=== PATIENT | female | born 1940 | race Caucasian/White ===

== ENCOUNTER 2017-07-30 21:54 | Inpatient (IN) | payer MEDICARE, OTHER ==
[~2017-07-30] VITALS: Ht 165.1 cm; Wt 57.6 kg
[2017-07-31] MEDS ORDERED: MAGNESIUM HYDROXIDE 30 ML UDC PO PRN (02:00)
[2017-07-31] MEDS ORDERED: MAG HYDROX/AL HYDROX/SIMETH 30 ML UDC PO PRN (02:00)
[2017-07-31] MEDS ORDERED: ZOLPIDEM TARTRATE 5 MG TABLET PO PRN (02:00)
[2017-07-31] MEDS ORDERED: ACETAMINOPHEN 325 MG TABLET PO PRN (02:00)
[2017-07-31] MEDS ORDERED: LORAZEPAM 0.5 MG TABLET PO PRN (02:00)
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
[2017-07-31] MEDS ORDERED: LATA2.5D2 EACHEYE (03:01)
[2017-07-31] MEDS ORDERED: ASPI-605 PO (03:01)
[2017-07-31] MEDS ORDERED: EPLE25TA10 PO (03:01)
[2017-07-31] MEDS ORDERED: LEVO112T2 PO (03:01)
[2017-07-31] MEDS ORDERED: FURO20TA4 PO (03:01)
[2017-07-31] MEDS ORDERED: CLOP75TA15 PO (03:01)
[2017-07-31] MEDS ORDERED: ESCI5TAB PO (03:01)
[2017-07-31] MEDS ORDERED: METO25TA6 PO (03:01)
[2017-07-31] MEDS ORDERED: LEVO750T46 PO (03:01)
[2017-07-31] MEDS ORDERED: QUET25TA PO (03:01)
[2017-07-31] MEDS ORDERED: ATOR20TA PO (03:01)
[2017-07-31] MEDS ORDERED: INSU100V7 SQ (03:01)
[2017-07-31] MEDS ORDERED: DEXTROSE 50%-WATER 50 ML DISP.SYRIN IV PRN ×2 (03:30→14:00)
[2017-07-31] MEDS ORDERED: *INSULIN REGULAR(HUMULIN R)HUM 100 UNIT/ML VIAL SQ PRN (03:30)
--- NOTE | 2017-07-31 04:19 | NUR ---
INITIAL ACCUCHECK WAS 217, 4 UNITS REG. INSULIN SC ADMINISTERED. OFFERED SNACKS.
--- NOTE | 2017-07-31 04:22 | NUR ---
PAGED AND SPOKE TO DR. MURPHY, RE: MED RECON AND INSULIN SLIDING SCALE.D SAID HE WILL JUST ORDER ACCUCHECK FOR NOW.
--- NOTE | 2017-07-31 07:03 | NUR ---
PATIENT REQUESTED PHOTO TAKEN IN THE MORNING.
--- NOTE | 2017-07-31 07:07 | NUR ---
PATIENT'S SON, SANTY VERGARA WAS CALLED, , NO ANSWER. VOICE MESSAGE LEFT.
[2017-07-31 08:00] VITALS: BP 147/77
[2017-07-31] MEDS: BLOOD SUGAR DIAGNOSTIC 1 EACH STRIP VI SCH ×2 (08:05→12:05)
[2017-07-31] MEDS: INSULIN REGULAR, HUMAN 100 UNIT/ML 3 ML VIAL SQ PRN ×3 (09:06→23:00)
--- NOTE | 2017-07-31 09:13 | NUR ---
GPS/RN-NOTES PATIENT BLOOD SUGAR WAS 167MG/DL, 3UNITS OF R INSULIN GIVEN PRN ORDER.
[2017-07-31] MEDS: ESCITALOPRAM OXALATE (10 MG) 10 MG TABLET PO SCH (11:32)
[2017-07-31] MEDS: QUETIAPINE FUMARATE 25 MG TABLET PO SCH ×2 (11:32→16:38)
--- NOTE | 2017-07-31 12:49 | NUR ---
GPS/RN-NOTES PATIENT BLOOD SUGAR WAS 262 MG/DL, 6 UNITS OF R INSULIN GIVEN PRN ORDER.
[2017-07-31] MEDS ORDERED: FUROSEMIDE 20 MG TABLET PO PRN (14:00)
[2017-07-31 15:11] LABS: CALCIUM, SERUM 8.9 mg/dL (8.5-10.1); CARBON DIOXIDE 29 mmol/L (21-32); CHLORIDE 103 mmol/L (98-107); CREATININE 1.2 mg/dL (0.6-1.3); GLUCOSE 328 mg/dL (74-106); POTASSIUM 4.4 mmol/L (3.5-5.1); SODIUM SERUM 138 mmol/L (136-145); UREA NITROGEN, BLOOD 21 mg/dL (7-18)
[2017-07-31 16:12] VITALS: BP 130/70
[2017-07-31] MEDS: METOPROLOL TARTRATE 25 MG TABLET PO SCH (16:39)
--- NOTE | 2017-07-31 16:42 | NUR ---
Initial Discharge Plan: Pts address on face sheet is [address] [place] [address]; . Pt reports it being her family residence. Pt however reports living in an Assisted Living (name unclear). Pt reports that her eldest son, Macho has conservatorship of her. SW will follow up with pts son, Macho to ensure pt is safely and properly discharged.
[2017-07-31] MEDS: BLOOD SUGAR DIAGNOSTIC 1 EACH STRIP IN SCH ×2 (17:26→22:55)
--- NOTE | 2017-07-31 18:08 | NUR ---
GPS/RN-NOTES WALDO DUNN SEEN THE PATIENT WITH VERBAL ORDER TO D/C LASIX 20MG P.O PRN. NOTED AND CARRIED OUT.
[2017-07-31] MEDS: LATANOPROST EYE DROP 0.005% 2.5 ML BOTTLE EACHEYE SCH (18:16)
[2017-07-31 20:00] VITALS: BP 143/90
[2017-07-31] MEDS ORDERED: CIPROFLOXACIN HCL 250 MG TABLET PO SCH (21:00)
[2017-07-31] MEDS ORDERED: CIPROFLOXACIN HCL 500 MG TABLET ONE (21:51)
[2017-07-31] MEDS ORDERED: INSULIN GLARGINE, 100 UNIT/ML CARTRIDGE SQ SCH (22:00)
[2017-07-31] MEDS: ATORVASTATIN 10 MG TABLET PO SCH (22:57)
[2017-08-01 08:00] VITALS: BP 127/59
[2017-08-01] MEDS: BLOOD SUGAR DIAGNOSTIC 1 EACH STRIP IN SCH ×4 (08:37→22:16)
[2017-08-01] MEDS: CLOPIDOGREL BISULFATE 75 MG TABLET PO SCH (08:41)
[2017-08-01] MEDS: ESCITALOPRAM OXALATE (10 MG) 10 MG TABLET PO SCH (08:41)
[2017-08-01] MEDS: QUETIAPINE FUMARATE 25 MG TABLET PO SCH ×2 (08:41→17:37)
[2017-08-01] MEDS: LEVOTHYROXINE SODIUM 112 MCG TABLET PO SCH (08:41)
[2017-08-01] MEDS: ASPIRIN EC 81 MG TABLET.DR PO SCH (08:41)
[2017-08-01] MEDS: METOPROLOL TARTRATE 25 MG TABLET PO SCH ×2 (08:42→17:38)
[2017-08-01] MEDS: HYDROCHLOROTHIAZIDE 25 MG TABLET PO SCH (08:42)
[2017-08-01] MEDS: INSULIN LISPRO/ASPART 100 UNIT/ML CARTRIDGE SQ SCH ×2 (09:44→17:52)
[2017-08-01] MEDS: INSULIN REGULAR, HUMAN 100 UNIT/ML 3 ML VIAL SQ PRN ×2 (12:30→22:19)
[2017-08-01 16:00] VITALS: BP_SYST 129; BP_SYST 135; BP_DIAS 65; BP_DIAS 87
[2017-08-01] MEDS: LATANOPROST EYE DROP 0.005% 2.5 ML BOTTLE EACHEYE SCH (17:38)
[2017-08-01] MEDS: CIPROFLOXACIN HCL 500 MG TABLET PO SCH (21:13)
[2017-08-01] MEDS: ATORVASTATIN 10 MG TABLET PO SCH (21:52)
[2017-08-01] MEDS: INSULIN GLARGINE, 100 UNIT/ML CARTRIDGE SQ SCH (22:17)
[2017-08-02] MEDS: BLOOD SUGAR DIAGNOSTIC 1 EACH STRIP IN SCH ×4 (07:05→21:30)
[2017-08-02] MEDS: INSULIN REGULAR, HUMAN 100 UNIT/ML 3 ML VIAL SQ PRN ×4 (07:08→21:34)
--- NOTE | 2017-08-02 07:08 | NUR ---
[id number]: BLOOD SUGAR IS 551 MG/DL AND NIGHTS SHIFT NURSE LASHELL SPOKE TO ZONIA DUNN TO ADMINISTER 10 UNITS OF REGULAR INSULIN AND HUMALOG 4 UNITS. WILL CONTINUE TO MONITOR FOR SIGNS AND SYMPTOMS OF ELEVATED BLOOD SUGAR.
[2017-08-02] MEDS: INSULIN LISPRO/ASPART 100 UNIT/ML CARTRIDGE SQ SCH ×2 (07:10→17:50)
[2017-08-02 07:19] LABS: BASOPHILS % (AUTO) 0.3 % (0.0-2.0); EOSINOPHILS # (AUTO) 0.1 /CMM (0.0-0.7); EOSINOPHILS % (AUTO) 1.1 % (0.0-6.0); HEMATOCRIT 34 % (33-45); HEMOGLOBIN 11.2 g/dL (11.5-14.8); LYMPHOCYTES # (AUTO) 1.2 /CMM (0.8-4.8); LYMPHOCYTES % (AUTO) 16.4 % (20.0-44.0); MEAN CORPUSCULAR HEMOGLOBIN 28 PG (26.0-33.0); MEAN CORPUSCULAR HGB CONC 34 g/dl (31.0-36.0); MEAN CORPUSCULAR VOLUME 85 fL (82-100); MONOCYTES # (AUTO) 0.4 /CMM (0.1-1.30); MONOCYTES % (AUTO) 5.6 % (2.0-12.0); NEUTROPHILS # (AUTO) 5.4 /CMM (1.8-8.9); NEUTROPHILS % (AUTO) 76.6 % (43.0-81.0); PLATELET COUNT (AUTO) 215 /CMM (150-450); RDW COEFFICIENT OF VARIATION 14.5 (11.5-15.0); RED BLOOD CELL COUNT(AUTO) 3.95 MIL/uL (4.0-5.2); WHITE BLOOD COUNT (AUTO) 7.1 K/uL (4.3-11.0)
[2017-08-02 07:29] LABS: CHOLESTEROL 207 mg/dL (<200); HDL CHOLESTEROL 69 mg/dL (40-60); LDL 119 mg/dL (0-99); TRIGLYCERIDES 46 mg/dL (30-150)
[2017-08-02 07:37] LABS: ALANINE AMINOTRANSFERASE 16 U/L (12-78); ALBUMIN 3.1 g/dL (3.4-5.0); ALKALINE PHOSPHATASE 96 U/L (46-116); ASPARTATE AMINOTRANSFERASE 17 U/L (15-37); BILIRUBIN,TOTAL 0.4 mg/dL (0.2-1.0); CALCIUM, SERUM 8.8 mg/dL (8.5-10.1); CARBON DIOXIDE 24 mmol/L (21-32); CHLORIDE 102 mmol/L (98-107); CREATININE 1.3 mg/dL (0.6-1.3); POTASSIUM 5.1 mmol/L (3.5-5.1); SODIUM SERUM 135 mmol/L (136-145); TOTAL PROTEIN, SERUM 6.8 g/dL (6.4-8.2); UREA NITROGEN, BLOOD 32 mg/dL (7-18)
[2017-08-02 07:39] LABS: GLUCOSE 551 mg/dL (74-106)
[2017-08-02 07:57] LABS: APPEARANCE,URINE CLEAR (CLEAR); BILIRUBIN,URINE NEGATIVE (NEGATIVE); BLOOD, URINE NEGATIVE Ery/uL (NEGATIVE); COLOR,URINE YELLOW (YELLOW); KETONES,URINE NEGATIVE (NEGATIVE); LEUKOCYTE ESTERASE ,URINE NEGATIVE (NEGATIVE); NITRITE, URINE NEGATIVE (NEGATIVE); PH,URINE 7.5 (5.0-8.0); PROTEIN,URINE NEGATIVE (NEGATIVE); UGLUCOSE NEGATIVE (NEGATIVE); UROBILINOGEN,URINE 0.2 EU/dL (0.2)
[2017-08-02 08:07] VITALS: BP 129/65
[2017-08-02] MEDS: LEVOTHYROXINE SODIUM 112 MCG TABLET PO SCH (08:47)
[2017-08-02] MEDS: ESCITALOPRAM OXALATE (10 MG) 10 MG TABLET PO SCH (08:47)
[2017-08-02] MEDS: HYDROCHLOROTHIAZIDE 25 MG TABLET PO SCH (08:48)
[2017-08-02] MEDS: QUETIAPINE FUMARATE 25 MG TABLET PO SCH ×3 (08:48→17:43)
[2017-08-02] MEDS: CLOPIDOGREL BISULFATE 75 MG TABLET PO SCH (08:48)
[2017-08-02] MEDS: ASPIRIN EC 81 MG TABLET.DR PO SCH (08:48)
[2017-08-02] MEDS: METOPROLOL TARTRATE 25 MG TABLET PO SCH ×2 (08:49→17:44)
[2017-08-02] MEDS: CIPROFLOXACIN HCL 500 MG TABLET PO SCH ×2 (08:51→21:11)
--- NOTE | 2017-08-02 08:59 | NUR ---
[id number]: BLOOD SUGAR IS 439 MG/DL. NOTIFIED ZONIA DUNN. NO NEW ORDERS GIVEN AT THIS TIME
--- NOTE | 2017-08-02 12:21 | NUR ---
[id number]: BLOOD SUGAR IS 187 MG/DL AND GAVE 3 UNITS OF REGULAR INSULIN
[2017-08-02 16:00] VITALS: BP 116/53
--- NOTE | 2017-08-02 17:49 | NUR ---
[id number]: BLOOD SUGAR IS 134 MG/DL AND GAVE 2 UNITS OF REGULAR INSULIN
[2017-08-02] MEDS: LATANOPROST EYE DROP 0.005% 2.5 ML BOTTLE EACHEYE SCH (17:50)
--- NOTE | 2017-08-02 17:50 | NUR ---
[id number]: BLOOD SUGAR IS 134 MG/DL AND GAVE 4 UNITS OF HUMALOG
--- NOTE | 2017-08-02 20:00 | NUR ---
RN GPS NOTES PT. LEONEL MARTELLFREDO LYNVERGARA TOOK HOME DEXCOM BLOOD SUGAR SENSER FOR CONTINUES GLUCOSE MONITORING .
[2017-08-02] MEDS: ATORVASTATIN 10 MG TABLET PO SCH (21:11)
[2017-08-02] MEDS: INSULIN GLARGINE, 100 UNIT/ML CARTRIDGE SQ SCH (22:44)
[2017-08-02 23:00] VITALS: BP 115/63
--- NOTE | 2017-08-03 03:46 | NUR ---
RN GPS NOTES: AT 0300 OFFERED ACCU CHECK , BUT PT. REFUSED AT THIS TIME , ENCOURAGED X3 , EXPLAIN RISKS AND BENEFITS STILL REFUSED , PT.STATUS PLEASE DON'T AWAKE ME UP AT THIS TIME , I HAVE HARD OF SLEEPING PROBLEMS
--- NOTE | 2017-08-03 05:00 | NUR ---
RN GPS NOTES PT. ENCOURAGED TO RECHECK ACCU CHECK , BLOOD SUGAR 179 MG /DL , BUT PT. REFUSED TO TAKE INSULLIN , PT. STATUS I AM FEELING OK , I DON'T WANT TAKE INSULLIN EARLY AT THIS TIME.
[2017-08-03 07:54] VITALS: BP 141/77
[2017-08-03] MEDS: BLOOD SUGAR DIAGNOSTIC 1 EACH STRIP IN SCH ×4 (08:09→21:37)
[2017-08-03] MEDS: INSULIN REGULAR, HUMAN 100 UNIT/ML 3 ML VIAL SQ PRN ×2 (08:10→16:57)
[2017-08-03] MEDS: INSULIN LISPRO/ASPART 100 UNIT/ML CARTRIDGE SQ SCH ×2 (08:11→17:01)
--- NOTE | 2017-08-03 08:11 | NUR ---
[id number]: BLOOD SUGAR IS 314 MG/DL AND GAVE 8 UNITS OF REGULAR INSULIN AND 4 UNITS OF HUMALOG.
[2017-08-03] MEDS: ASPIRIN EC 81 MG TABLET.DR PO SCH (08:45)
[2017-08-03] MEDS: ESCITALOPRAM OXALATE (10 MG) 10 MG TABLET PO SCH (08:46)
[2017-08-03] MEDS: CIPROFLOXACIN HCL 500 MG TABLET PO SCH ×2 (08:46→21:26)
[2017-08-03] MEDS: LEVOTHYROXINE SODIUM 112 MCG TABLET PO SCH (08:46)
[2017-08-03] MEDS: CLOPIDOGREL BISULFATE 75 MG TABLET PO SCH (08:46)
[2017-08-03] MEDS: QUETIAPINE FUMARATE 25 MG TABLET PO SCH ×3 (08:46→16:48)
[2017-08-03] MEDS: METOPROLOL TARTRATE 25 MG TABLET PO SCH ×2 (08:47→16:48)
[2017-08-03] MEDS: HYDROCHLOROTHIAZIDE 25 MG TABLET PO SCH (08:48)
--- NOTE | 2017-08-03 12:19 | NUR ---
[id number]: BLOOD SUGAR IS 103 MG/DL AND NO INSULIN REQUIRED AT THIS TIME
--- NOTE | 2017-08-03 14:46 | NUR ---
Discharge Planning: SW spoke to pts son Macho Johnson (Macho is pts Conservator) for discharge planning purposes. Macho provided additional information regarding pts current residence as well as pts history in the facility. Per Macho, pt is residing at the [facility]. Per pt and son, pt would like to remain in the facility as it allows her to keep her dog. Pts son informed SW that he would contact Lien Simeon, Medical Coder of the facility to inquire if pt would be allowed to return. Pts son has a long standing relationship with the tonsorial artist and believes pt will be allowed to return. SW will follow up.
--- NOTE | 2017-08-03 15:34 | NUR ---
[id number]: NOTIFIED MAIRA INGRAM TO CALL SON NAMED SANTY VERGARA AT [phone] TO FOLLOW UP ON PLACEMENT
[2017-08-03 16:00] VITALS: BP 118/54
--- NOTE | 2017-08-03 16:57 | NUR ---
[id number]: BLOOD SUGAR IS 319 MG/DL AND GAVE 8 UNITS OF REGULAR INSULIN
[2017-08-03] MEDS: LATANOPROST EYE DROP 0.005% 2.5 ML BOTTLE EACHEYE SCH (17:00)
--- NOTE | 2017-08-03 17:01 | NUR ---
[id number]: BLOOD SUGAR IS 319 MG/DL AND GAVE 4 UNITS OF HUMALOG
[2017-08-03 19:29] VITALS: BP 99/45
--- NOTE | 2017-08-03 19:30 | NUR ---
GPS RN NOTE, RECEIVED PATIENT AWAKE AND IN BED, NO S/S OR COMPLAINTS OF PAIN AT THIS TIME. PATIENT IS DISPLAYING NO S/S OF APPARENT DISTRESS AT THIS TIME. PATIENT BREATHING IS UNLABORED WITH EQUAL RISE AND FALL OF THE CHEST. PATIENT IS ALERT AND ORIENTED X 3 ON ROOM AIR WITH A SPO2 OF 97%. PATIENT IS MEDICATION COMPLIANT, DISORGANIZED, DEPRESSED, ISOLATIVE, PARANOID, AND NEEDS REORIENTATION. PATIENT DENIES SUICIDE IDEATIONS AND HOMICIDAL IDEATIONS AT THIS TIME. PATIENT ASSISTED WITH TURNING AND REPOSITIONING Q2HR AND PRN FOR COMFORT AND CIRCULATION. PATIENT HAS NO NEEDS AT THIS TIME. PATIENT EDUCATED ON THE USE OF THE CALL LOBO. PATIENT SIDE RAILS ARE UP X 2, BED IS LOCKED AND LOW, AND I WILL CONTINUE TO MONITOR THIS PATIENT Q 15 MIN WITH THE HELP OF STAFF.
[2017-08-03] MEDS: ATORVASTATIN 10 MG TABLET PO SCH (21:26)
--- NOTE | 2017-08-03 21:37 | NUR ---
GPS RN NOTE, PERFORMED ACCU CHECK ON THIS PATIENT WITH A BLOOD SUGAR RESULT OF 63. NO REGULAR INSULIN GIVEN PER SLIDING SCALE. PATIENT ATE TWO PUDDINGS AND DRANK THREE ORANGE JUICES. PATIENT TOLERATED HER SNACK WELL WILL CONTINUE TO MONITOR THIS PATIENT.
[2017-08-03] MEDS: INSULIN GLARGINE, 100 UNIT/ML CARTRIDGE SQ SCH (22:01)
[2017-08-04 08:00] VITALS: BP 121/60
[2017-08-04] MEDS: BLOOD SUGAR DIAGNOSTIC 1 EACH STRIP IN SCH ×4 (08:03→22:06)
[2017-08-04] MEDS: INSULIN REGULAR, HUMAN 100 UNIT/ML 3 ML VIAL SQ PRN ×3 (08:05→21:56)
[2017-08-04] MEDS: INSULIN LISPRO/ASPART 100 UNIT/ML CARTRIDGE SQ SCH ×2 (08:05→18:31)
--- NOTE | 2017-08-04 08:05 | NUR ---
[id number]: BLOOD SUGAR IS 310 MG/DL AND GAVE 8 UNITS OF REGULAR INSULIN AND 4 UNITS OF HUMALOG
[2017-08-04] MEDS: CIPROFLOXACIN HCL 500 MG TABLET PO SCH ×2 (08:44→21:03)
[2017-08-04] MEDS: LEVOTHYROXINE SODIUM 112 MCG TABLET PO SCH (08:44)
[2017-08-04] MEDS: QUETIAPINE FUMARATE 25 MG TABLET PO SCH ×4 (08:45→21:04)
[2017-08-04] MEDS: HYDROCHLOROTHIAZIDE 25 MG TABLET PO SCH (08:45)
[2017-08-04] MEDS: ESCITALOPRAM OXALATE (10 MG) 10 MG TABLET PO SCH (08:45)
[2017-08-04] MEDS: CLOPIDOGREL BISULFATE 75 MG TABLET PO SCH (08:45)
[2017-08-04] MEDS: ASPIRIN EC 81 MG TABLET.DR PO SCH (08:46)
[2017-08-04] MEDS: METOPROLOL TARTRATE 25 MG TABLET PO SCH ×2 (08:46→16:53)
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
--- NOTE | 2017-08-04 12:10 | NUR ---
[id number]: BLOOD SUGAR IS 188 MG/DL AND GAVE 3 UNITS OF REGULAR INSULIN
[2017-08-04 16:00] VITALS: BP 104/66
--- NOTE | 2017-08-04 16:59 | NUR ---
[id number]: BLOOD SUGAR IS 60 MG/DL AND GAVE A CUP OF ORANGE JUICE. WILL RECHECK BLOOD SUGAR
[2017-08-04] MEDS: LATANOPROST EYE DROP 0.005% 2.5 ML BOTTLE EACHEYE SCH (17:07)
[2017-08-04 20:31] VITALS: BP 118/54
[2017-08-04] MEDS: ATORVASTATIN 10 MG TABLET PO SCH (21:04)
[2017-08-04] MEDS: INSULIN GLARGINE, 100 UNIT/ML CARTRIDGE SQ SCH (21:57)
[2017-08-05 06:15] VITALS: BP 113/62
[2017-08-05] MEDS: INSULIN REGULAR, HUMAN 100 UNIT/ML 3 ML VIAL SQ PRN ×4 (07:31→21:35)
[2017-08-05] MEDS: LEVOTHYROXINE SODIUM 112 MCG TABLET PO SCH (07:45)
[2017-08-05] MEDS: BLOOD SUGAR DIAGNOSTIC 1 EACH STRIP IN SCH ×4 (07:46→21:36)
[2017-08-05 08:00] VITALS: BP 137/58
[2017-08-05] MEDS: CLOPIDOGREL BISULFATE 75 MG TABLET PO SCH (08:04)
[2017-08-05] MEDS: CIPROFLOXACIN HCL 500 MG TABLET PO SCH ×2 (08:05→21:06)
[2017-08-05] MEDS: QUETIAPINE FUMARATE 25 MG TABLET PO SCH ×4 (08:05→21:06)
[2017-08-05] MEDS: ESCITALOPRAM OXALATE (10 MG) 10 MG TABLET PO SCH (08:05)
[2017-08-05] MEDS: METOPROLOL TARTRATE 25 MG TABLET PO SCH ×2 (08:05→16:21)
[2017-08-05] MEDS: HYDROCHLOROTHIAZIDE 25 MG TABLET PO SCH (08:05)
[2017-08-05] MEDS: ASPIRIN EC 81 MG TABLET.DR PO SCH (08:05)
[2017-08-05] MEDS: INSULIN LISPRO/ASPART 100 UNIT/ML CARTRIDGE SQ SCH ×2 (08:34→17:51)
--- NOTE | 2017-08-05 10:02 | NUR ---
Discharge Planning: SW contacted pts son Macho for discharge planning purposes. SW inquired if son had followed up with Lien Simeon, movie stunt performer of pts Assisted Living regarding pts return to the facility. Per Macho, "I'm pretty sure she can return but I will follow up today and get back to you." SW will follow up with facility to ensure pt is appropriately discharged.
--- NOTE | 2017-08-05 14:15 | NUR ---
Discharge Planning: SW received a message from pts rahel Pritchard confirming that pt could return to the [facility], [address] [place] [address]; upon discharge. SW will follow up to ensure pt is safely discharged.
--- NOTE | 2017-08-05 14:20 | NUR ---
Discharge Planning: MIARA contacted pts son Macho to inform that per psychiatrist, Dr. Perera pt would be ready to discharge on Thursday08/07/17. Pts son agreed to pick pt up at 11 am and transport her to the [facility], [address] [place] [address]; . MAIRA will plan pts discharge.
--- NOTE | 2017-08-05 16:34 | NUR ---
RN-CO: BLOOD SUGAR IS 94 BEFORE DINNER. NO COVERAGE PER SLODING SCALE BEFORE MEALS.
[2017-08-05 16:55] VITALS: BP 102/44
[2017-08-05] MEDS: LATANOPROST EYE DROP 0.005% 2.5 ML BOTTLE EACHEYE SCH (17:00)
--- NOTE | 2017-08-05 17:51 | NUR ---
RN-CO: INSULIN (ASPART/LISPRO) 6 UNITS GIVEN TO PATIENT AFTER DINNER. PATIENT ATE 100%.
[2017-08-05 20:47] VITALS: BP 115/48
[2017-08-05] MEDS: ATORVASTATIN 10 MG TABLET PO SCH (21:07)
[2017-08-05] MEDS: INSULIN GLARGINE, 100 UNIT/ML CARTRIDGE SQ SCH (21:35)
--- NOTE | 2017-08-05 21:37 | NUR ---
GPS RN NOTES PT. REFUSED INSULLIN LANTUS CARTRIDGE 14 UNITS REFUSED ., ENCOURAGED X3 , STILL REFUSED PT. STATUS I DON'T WANT IT.
--- NOTE | 2017-08-05 21:43 | NUR ---
RN GPS NOTES PT. BLOOD SUGAR 164 MG /DL 3 UNITS OF INSULLIN REGULAR HUMAN GIVEN, BUT PT. REFUSED TO TAKE INSULLIN LANTUS CARTRIDGE 14 UNITS , ENCOURAGED X3 ,STILL REFUSED , PT. STATUS I DON'T WANT TAKE IT ,
[2017-08-05 23:30] VITALS: BP 114/64
[2017-08-06] MEDS: BLOOD SUGAR DIAGNOSTIC 1 EACH STRIP IN SCH ×4 (07:48→22:40)
[2017-08-06] MEDS: INSULIN REGULAR, HUMAN 100 UNIT/ML 3 ML VIAL SQ PRN ×2 (07:50→12:31)
--- NOTE | 2017-08-06 07:56 | NUR ---
GPS/RN-NOTES PATIENT BLOOD SUGAR WAS 492MG/DL 10 UNITS OF R INSULIN GIVEN,WILL RECHECK IN 30 MINS.
[2017-08-06 08:00] VITALS: BP 156/66
[2017-08-06] MEDS: LEVOTHYROXINE SODIUM 112 MCG TABLET PO SCH (08:26)
[2017-08-06] MEDS: ASPIRIN EC 81 MG TABLET.DR PO SCH (08:26)
[2017-08-06] MEDS: QUETIAPINE FUMARATE 25 MG TABLET PO SCH ×4 (08:27→22:45)
[2017-08-06] MEDS: CLOPIDOGREL BISULFATE 75 MG TABLET PO SCH (08:27)
[2017-08-06] MEDS: ESCITALOPRAM OXALATE (10 MG) 10 MG TABLET PO SCH (08:27)
[2017-08-06] MEDS: HYDROCHLOROTHIAZIDE 25 MG TABLET PO SCH (08:28)
[2017-08-06] MEDS: METOPROLOL TARTRATE 25 MG TABLET PO SCH ×2 (08:28→16:41)
[2017-08-06] MEDS: INSULIN LISPRO/ASPART 100 UNIT/ML CARTRIDGE SQ SCH ×2 (08:48→18:24)
--- NOTE | 2017-08-06 08:49 | NUR ---
DR. ESPINOSA GAVE AN ORDER TO D/C HOLD AND D/C HOME AND TO FOLLOW UP WITH PSYCH AND MEDICAL DOCTORS. Addendum: 08/06/17 at 0850 by MARY JOSEPH RN WRONG DOCUMENTATION
--- NOTE | 2017-08-06 09:02 | NUR ---
GPS/RN-NOTES PATIENT BLOOD SUGAR AT THIS TIME WAS 538MG/DL, 6 UNITS OF HUMALOG INSULIN WAS GIVEN. PEANUT GRADER MONA MADE AWARE OF PATIENT BLOOD SUGAR. STATED" WILL MONITOR AND RECHECK AGAIN IN 3 HOURS." CHARGE NURSE ALSO AWARE.
--- NOTE | 2017-08-06 12:40 | NUR ---
GPS/RN-NOTES PATIENT BLOOD SUGAR WAS 208 MG/DL 4 UNITS OF R INSULIN GIVEN.
[2017-08-06 15:52] VITALS: BP 106/65
--- NOTE | 2017-08-06 17:00 | NUR ---
GPS/RN-NOTES PATIENT BLOOD SUGAR WAS 69MG/DL NO COVERAGE GIVEN AT THIS TIME.
[2017-08-06] MEDS: LATANOPROST EYE DROP 0.005% 2.5 ML BOTTLE EACHEYE SCH (17:13)
[2017-08-06 20:00] VITALS: BP 101/52
[2017-08-06] MEDS: ATORVASTATIN 10 MG TABLET PO SCH (21:08)
[2017-08-06] MEDS: INSULIN GLARGINE, 100 UNIT/ML CARTRIDGE SQ SCH (22:00)
--- NOTE | 2017-08-06 22:41 | NUR ---
ACCUCHECK 66 MG/DL, ORANGE JUICE WITH 2 SUGAR GIVEN. EGG SANDWICH GIVEN FOR HER HS SNACKS.
--- NOTE | 2017-08-06 22:42 | NUR ---
LANTUS 14 UNITS NOT ADMINISTERED, ACCUHECK = 66 MG/DL.
--- NOTE | 2017-08-07 05:12 | NUR ---
0500 PATIENT CAME TO HURSE'S STATION C/O THAT SHE DOES NOT FEEL GOOD, ACCUCHECK DONE = 547, ACCUCHECK REPEATED = STILL 547. STAT GLUCOSE WAS ORDERED AND DRAWN. WILL CALL
--- NOTE | 2017-08-07 05:18 | NUR ---
STA RANDOM GLUCOSE WAS DRAWN.
--- NOTE | 2017-08-07 05:47 | NUR ---
PAGED AGAIN DR. Lalo FLORES, RE: ACCUCHECK OF 547 MG/DL
--- NOTE | 2017-08-07 05:57 | NUR ---
RANDOM GLUCOSE RESULT IS 581 MG/DL.
[2017-08-07] MEDS: INSULIN REGULAR, HUMAN 100 UNIT/ML 3 ML VIAL SQ PRN ×2 (05:59→07:02)
--- NOTE | 2017-08-07 06:00 | NUR ---
5 units regular insulin sc administered per dr. david's order, blood sugar of 547 mg/dl.
[2017-08-07] MEDS: BLOOD SUGAR DIAGNOSTIC 1 EACH STRIP IN SCH (06:54)
--- NOTE | 2017-08-07 06:55 | NUR ---
SHAMIKA NOW 0655 = 580 MG/DL, WILL NOTIFY DR. FLORES
--- NOTE | 2017-08-07 07:03 | NUR ---
PAGED DR. FLORES, RE: ACCUCHECK NOW OF 580 MG/DL. IF ADDITIONAL INSULIN IS NEEDED.
[2017-08-07 08:00] VITALS: BP 149/62
--- NOTE | 2017-08-07 08:41 | NUR ---
GPS/RN PER PT SHE NEVER REFUSED LANTUS LAST NIGHT NOR IT WAS OFFERED TO HER. CONVERSATION WITNESSED BY ZARA CARRASCO/CHARGE NURSE
[2017-08-07] MEDS: INSULIN LISPRO/ASPART 100 UNIT/ML CARTRIDGE SQ SCH (09:02)
[2017-08-07] MEDS: QUETIAPINE FUMARATE 25 MG TABLET PO SCH (09:03)
[2017-08-07] MEDS: ASPIRIN EC 81 MG TABLET.DR PO SCH (09:03)
[2017-08-07 09:04] VITALS: BP 149/62
[2017-08-07] MEDS: METOPROLOL TARTRATE 25 MG TABLET PO SCH (09:04)
[2017-08-07] MEDS: HYDROCHLOROTHIAZIDE 25 MG TABLET PO SCH (09:04)
[2017-08-07] MEDS: CLOPIDOGREL BISULFATE 75 MG TABLET PO SCH (09:04)
[2017-08-07] MEDS: LEVOTHYROXINE SODIUM 112 MCG TABLET PO SCH (09:04)
[2017-08-07] MEDS: ESCITALOPRAM OXALATE (10 MG) 10 MG TABLET PO SCH (09:04)
--- NOTE | 2017-08-07 09:12 | NUR ---
RN-CO: DR BOLAÑOS GAVE AN ORDER VIA TELEPHONE CALL TO DISCONTINUE HOLD AND DISCHARGE PATIENT TODAY, NOTED. PATIENT DENIED PAIN AND DISCOMFORTS, AMBULATOY, NO ACITE DISTRESS NOTED. DENIED AUDITORY AND VISUAL HALLUCINATION. DENIED SUICIDAL AND HOMICIDAL IDEATION. HER AFFECT IS APPROPRIATE. MOTIVATED TO TAKE CARE OF HERSELF.
--- NOTE | 2017-08-07 09:12 | NUR ---
GPS/RN ACCUCHECK WITH BS =518. NO S/XS OF HYPERGLYCEMIA NOTED PT A/O X4 AMBULATORY. MONA HAAS CALLED FOR THE ORDERS. NEW ORDERS: 1. GIVE SCHEDULED 6UNITS LISPRO/ASPART. NO REGULAR COVERAGE PT ALREADY HAD 10 UNITS OF REGULAR INSULIN IN AM 2. PT MEDICALLY CLEARED TO BE D/C HOME TODAY
--- NOTE | 2017-08-07 09:46 | NUR ---
Discharge Note: Patient will be discharged to the Assisted Living, [facility], [address] [place] [address]; . Patient will be picked up by her son, Macho Johnson , will be picking her up and transporting her to the Assisted Living facility via private vehicle. Macho is in agreement with the discharge plan. Upon discharge, patient is cooperative and very pleasant. Patient seems to be in a happy mood and is glad to be discharging. Patient denies suicidal and homicidal ideation. Patient denies hallucinations. Patient will be seen by her psychiatrist, Dr. Kenia Jimenez, [address], [facility] [address]; on August 13 at 4pm. Patient will also has an appointment with her soccer ball assembler, Dr. Villalobos [covering for Dr. Frank], [address] [facility] [address]; on August 18 at 3:30. Patient and son were provided with these appointments.
--- NOTE | 2017-08-07 10:15 | NUR ---
GPS/RN PT REFUSED ACCUCHECK OFFERED X3
--- NOTE | 2017-08-07 11:55 | NUR ---
GPS/RN PT D/C TO [facility] [phone] AND PICKED UP BY HER SON Macho Johnson . NO SI OR HI AT THE TIME OF D/C. BELONGINGS RETURNED, ID BAND REMOVED NO ACUTE DISTRESS NOTED. PT SON/CONSERVATOR VERBALIZED UNDERSTANDING OF MEDICATION AND EXIT CARE INSTRUCTIONS.VSS. NO S/ S OF HYPERGLYCEMIA NOTED.PT IS AMBUALTORY WITH WALKER AND WAS ACCOMPANIED TO THE LOBBY.
== END 2017-08-07 11:55 | DRG 881 ==
LOC: GPS 07-31 01:47
PROVIDERS: ADMIT Psychiatry & Neurology Psychiatry; ATTEND Psychiatry & Neurology Psychiatry
DX: F32.9 Major depressive disorder, single episode, unspecified (principal); N17.0 Acute kidney failure with tubular necrosis; E10.65 Type 1 diabetes mellitus with hyperglycemia; J18.9 Pneumonia, unspecified organism; J90 Pleural effusion, not elsewhere classified; F03.91 Unspecified dementia, unspecified severity, with behavioral disturbance; F29 Unspecified psychosis not due to a substance or known physiological condition; Z73.6 Limitation of activities due to disability; I25.10 Atherosclerotic heart disease of native coronary artery without angina pectoris; E78.5 Hyperlipidemia, unspecified; I10 Essential (primary) hypertension; Z81.8 Family history of other mental and behavioral disorders; Z79.899 Other long term (current) drug therapy; Z79.4 Long term (current) use of insulin; Z59.0 Homelessness; H40.9 Unspecified glaucoma; E03.9 Hypothyroidism, unspecified
CPT/HCPCS: 36415; 80048-TC; 80053-TC; 80061-TC; 81000-TC; 82947-TC; 82962-TC; 83735-TC; 85025-TC; 87081-TC; A6402; J1815